=== PATIENT | female | born 1980 | race Caucasian/White ===

== ENCOUNTER 2024-02-13 17:00 | Emergency (ER) | payer OTHER, SELFPAY ==
--- NOTE | ~2024-02-13 | CT_ITS ---
EXAMINATION: CT ABDOMEN AND PELVIS WITHOUT CONTRAST CLINICAL INFORMATION: Bilateral flank pain. Dysuria. COMPARISON: CT abdomen pelvis dated August 31, 2021. TECHNIQUE: Multidetector volumetric imaging was performed from the superior aspect of the liver through the pubic symphysis. Sagittal and coronal reformatted images were obtained on the technologist's workstation. This CT examination was performed using dose optimization techniques as appropriate, variously including the following: *Automated exposure control *Adjustment of mA and/or kV according to patient size (this includes techniques or standardized protocols for targeted exams where dose is matched to indication/reason for exam; i.e. extremities or head) *Use of iterative reconstruction technique DLP: 722 mGy-cm FINDINGS: LUNG BASES: The visualized lung bases are unremarkable. LIVER, GALLBLADDER, AND BILIARY TREE: The liver is normal in size, shape, and attenuation. No focal hepatic lesion or biliary ductal dilatation is present. The gallbladder is surgically absent. PANCREAS: Unremarkable. SPLEEN: Unremarkable. ADRENAL GLANDS: Unremarkable. KIDNEYS AND URETERS: The right kidney is scarred and mildly atrophic. The appearance is similar to that seen on the August 31, 2021 CT abdomen pelvis. There are multiple calcifications of both the cortex and medulla. There is a punctate, nonobstructing calculus within the interpolar region. The left kidney is normal in size and attenuation. No left sided calculi or hydronephrosis. Bilaterally there is no hydroureter. There is no perinephric stranding. BLADDER: Unremarkable. GASTROINTESTINAL TRACT: The small and large bowel are normal in caliber. There is no pericolonic inflammatory stranding. The appendix is unremarkable. ABDOMINAL WALL: No significant hernia is appreciated. LYMPH NODES: No lymphadenopathy. VASCULAR: No aortic aneurysm. PELVIC VISCERA: Unremarkable. No pelvic free fluid. OSSEOUS STRUCTURES: There are bilateral L5 pars defects. There is 7 mm of anterolisthesis of L5 in relation to S1. There is moderate to severe degenerative disc disease at this level. CT/CT abdomen pelvis wo IV con IMPRESSION: No acute intra-abdominal/intrapelvic abnormality. The right kidney is scarred and mildly atrophic. The appearance is similar to that seen on the August 31, 2021 CT abdomen pelvis. There are multiple calcifications of both the cortex and medulla. There is a punctate, nonobstructing calculus within the interpolar region. The left kidney is normal in size and attenuation. No left sided calculi or hydronephrosis. There are bilateral L5 pars defects. There is 7 mm of anterolisthesis of L5 in relation to S1. There is moderate to severe degenerative disc disease at this level. Fleischner guidelines were followed. Electronically signed by: Abhilash Bustamante DO 02/13/2024 09:51 PM EDT
[2024-02-13 17:12] VITALS: BP 118/80; PULSE 97; RESP 18; TEMP 36.5; O2SAT 99; BMI 33.2
--- NOTE | 2024-02-13 17:16 | ED.GENADULT ---
HPI - General Adult General Chief complaint: Abdominal Pain Stated complaint: Abd pain Time Seen by Provider: 02/13/24 19:35 Source: patient Mode of arrival: ambulatory Limitations: no limitations History of Present Illness HPI narrative: Patient is a 43-year-old female who presents emergency department for evaluation. She states that 5 days ago she had an outpatient pelvic ultrasound due to vaginal bleeding that was without any acute abnormality aside from ?small right ovary? which her provider told her was due to her premenopausal state. She expresses concern that she did not take Macrobid prior to the transvaginal ultrasound, she has been instructed by her doctor to take Macrobid prior to any sexual intercourse and she is concerned that she now has a resulting kidney infection or obstructive kidney stone due to the pain she is experiencing. She has pain to the bilateral flanks though her right is worse than her left. Right kidney is functioning at ?29%?, and she has a known 5 mm stone that she is concerned is now in her urethra due to her degree of pain. She began taking OTC Cystex 3 days ago without improvement. Related Data Previous Rx's ?Medication ?Instructions ?Recorded nitrofurantoin 100 mg PO Q12H 5 days #10 caps 02/13/24 monohydrate/macrocrystals 100 mg capsule (Macrobid) Allergies Allergy/AdvReac Type Severity Reaction Status Date / Time adhesive tape Allergy Unknown Verified 02/13/24 17:20 carrot Allergy Hives Verified 02/13/24 17:20 [place] And Derivatives Allergy Hives Verified 02/13/24 17:20 egg Allergy Hives Verified 02/13/24 17:20 fluconazole [From Diflucan] Allergy Unknown Verified 02/13/24 17:20 montelukast [From Singulair] Allergy Hives Verified 02/13/24 17:20 sulfamethoxazole Allergy Unknown Verified 02/13/24 17:20 [From Bactrim] tetracycline Allergy Unknown Verified 02/13/24 17:20 trimethoprim [From Bactrim] Allergy Unknown Verified 02/13/24 17:20 Review of Systems Review of Systems: Yes all other systems are reviewed and are negative [facility] Past Medical History Attestation statement: The following information was validated with the patient. Source: old records reviewed Social History Social History Smoked in Last 30 Days: No Use of substances other than those prescribed or required for medical reasons: Yes Substance Use Type: Marijuana Advance Directives: No Advance Directives Information Provided: No Patient : No Physical Exam ED Vital Signs: Vital Signs - 24 hr 02/13/24 17:12 02/13/24 19:47 02/13/24 22:00 Temperature 97.7 F 98.1 F 98.4 F Pulse Rate 97 95 60 Respiratory Rate 18 16 16 Blood Pressure 118/80 122/84 100/60 Pulse Oximetry 99 98 97 Oxygen Delivery Method Room Air Room Air Room Air 02/13/24 22:42 Temperature 98.4 F Pulse Rate 60 Respiratory Rate 16 Blood Pressure 100/60 Pulse Oximetry 97 Oxygen Delivery Method Room Air BMI result Body Mass Index 33.2 Appearance: Alert.?Oriented to person, place and time. No acute distress.?Normal affect. Neck: Normal inspection.? Neck supple.?? CVS: Heart sounds normal. Normal heart rate and rhythm.? Pulses normal.?? Respiratory: No respiratory distress.? Lung sounds clear to auscultation bilaterally?? Abdomen: Soft and tenderness upon palpation over the suprapubic region. Bilateral CVAT, right worse than left. Normoactive bowel sounds. No pulsatile mass.?? Skin: Skin warm and dry.? Normal skin color.? Extremities: No lower extremity edema.? Neuro: Moves all extremities spontaneously. Sensation intact bilaterally. No focal neuro deficits. Ambulates with normal steady gait. Course Course Course Narrative: RME, this is a rapid medical exam performed by Darío Roe please refer to primary provider for complete H&P- 43 year old female presents for evaluation of abdominal pain. She reports a history of chronic UTIs. She was sent here by urgent care. Plan for labs and UA Reevaluation(s) Reevaluation #1: CT without evidence of obstructive calculi, pyelonephritis. She has notable degenerative changes in the lumbar spine notably at L5 pars defect, discussed these findings with patient, outpatient treatment, and appropriate follow-up with her primary care doctor. Her urinalysis reveals leukocyte esterase otherwise no significant compelling evidence of urinary tract infection, given she is symptomatically treat with a course of Macrobid, discussed with patient may additionally be cystitis, recommend outpatient follow-up with primary care doctor. Discussed worrisome signs and symptoms that would warrant re-evaluation emergency department. All questions answered. Medications Administered Discontinued Medications Generic Name Dose Route Start Last Admin Trade Name Freq PRN Reason Stop Dose Admin Ketorolac Tromethamine 15 mg 02/13/24 20:17 02/13/24 20:31 Ketorolac Tromethamine 15 Mg/Ml Vial IM 02/13/24 20:18 15 mg ONCE ONE Administration Ondansetron HCl 4 mg 02/13/24 20:21 02/13/24 20:31 Ondansetron Odt 4 Mg Tab.Rapdis TRANSLINGU 02/13/24 20:22 4 mg ONCE ONE Administration Phenazopyridine HCl 100 mg 02/13/24 20:17 02/13/24 20:31 Phenazopyridine Hcl 100 Mg Tablet PO 02/13/24 20:18 100 mg ONCE ONE Administration Medical Decision Making Medical Decision Making [facility] Narrative: Patient is a 43-year-old female presents emergency department for evaluation of bilateral flank pain the setting of recent urinary tract infection as per HPI, by her account she was seen at urgent care prior to arrival and was advised to come to the emergency department to have CT scan of the abdomen and pelvis obtained. She has great worse than left CVA tenderness upon palpation and suprapubic tenderness on exam. No rigidity or guarding of the abdomen. No rebound tenderness at McBurney's point. Requesting Pyridium which I feel is reasonable at this time given her dysuria, we will medicate with Toradol IM for pain, sublingual Zofran for nausea, pending CT abdomen pelvis and serum labs Differential Diagnosis Differential Diagnoses: The differential diagnosis associated with the presentation includes (Urinary tract infection, pyelonephritis, cystitis, nephrolithiasis, obstructive calculi, hydronephrosis. Lower clinical suspicion for colitis, enteritis, appendicitis, acute hepatobiliary etiology.) Admission/Observation Consideration of admission/observation: Escalation of care including admission/observation considered (See narrative above and below for further detail) Lab Data [facility] Lab Attestation statement: I reviewed the patient's lab results. CBC without leukocytosis anemia or thrombocytopenia. No electrolyte derangement. No TERESE. Urinalysis with trace leukocyte esterase. 02/13/24 17:40 02/13/24 17:40 Labs: Lab Results 02/13/24 Range/Units 17:40 WBC 7.8 (4.8-10.8) X10*3/uL RBC 4.11 L (4.20-5.50) X10*6/uL Hgb 12.9 (12.0-16.0) g/dl Hct 37.6 (37.0-47.0) % MCV 91.5 (80.0-98.0) fL MCH 31.4 (27.0-33.0) pg MCHC 34.3 (31.0-35.0) g/dl RDW 13.3 (11.0-16.0) % Plt Count 345 (160-400) X10*3/uL MPV 9.5 (9.4-12.3) fL Immature Gran % (Auto) 0.4 (0.0-0.4) % Neut % (Auto) 59.5 (45-73) % Lymph % (Auto) 31.9 (20-40) % [place] % (Auto) 6.0 (2-11) % Eos % (Auto) 1.8 (0-4) % Baso % (Auto) 0.4 (0-2) % Lymph # (Auto) 2.5 (1.2-4.9) X10*3/uL [place] # (Auto) 0.5 (0.1-1.2) X10*3/uL Eos # (Auto) 0.1 (0.0-0.4) X10*3/uL Baso # (Auto) 0.0 (0.0-0.2) X10*3/uL Abs Immat Gran (auto) 0.03 (0.00-0.03) X10*3/uL Absolute Neuts (auto) 4.7 (2.0-8.3) x10*3/uL Absolute Nucleated RBC 0.000 (0.0-0.012) X10*3/uL Nucleated RBC % (auto) 0.0 (0.0-0.2) /100WBC Sodium 142 (135-145) mmol/L Potassium 4.5 (3.3-5.1) mmol/L Chloride 110 H (96-108) mmol/L Carbon Dioxide 23 (22-29) mmol/L Anion Gap 14 (12-20) BUN 6 L (9-16) mg/dL Creatinine 0.81 (0.5-1.4) mg/dL Estim Creat Clear Calc 86.4 Estimated GFR > 60 Random Glucose 91 (60-115) mg/dL Calcium 8.5 (8.4-10.2) mg/dL Total Bilirubin 0.2 (0.0-1.0) mg/dL AST 17 (5-31) U/L ALT 15 (0-31) U/L Alkaline Phosphatase 49 (39-117) U/L Total Protein 6.4 L (6.5-8.0) g/dL Albumin 3.7 (3.5-5.0) g/dL Lipase 29 (8-78) U/L Beta HCG, Quant < 2 mIU/mL Urine Color Yellow Urine Appearance Clear Urine pH 6.0 (5.0-9.0) Ur Specific [place] 1.020 (1.005-1.025) Urine Protein Negative (Neg-Trace) mg/dL Urine Glucose (UA) Negative (Negative) mg/dL Urine Ketones Negative (Negative) mg/dL Urine Blood Negative (Negative) Urine Nitrite Negative (Negative) Ur Leukocyte Esterase Trace H (Negative) Urine RBC 0-2 (0-2) /HPF Urine WBC 0-5 (0-5) /HPF Ur Squamous Epith Cells 0-2 (0-2) /HPF Urine Bacteria None Seen (None Seen) Hyaline Casts 0-2 (0-2) /LPF Radiology Impression Discussion of test interpretation with radiology: I have reviewed the radiologist's reading. Radiologist Impression: CT/CT abdomen pelvis wo IV con IMPRESSION: No acute intra-abdominal/intrapelvic abnormality. The right kidney is scarred and mildly atrophic. The appearance is similar to that seen on the August 31, 2021 CT abdomen pelvis. There are multiple calcifications of both the cortex and medulla. There is a punctate, nonobstructing calculus within the interpolar region. The left kidney is normal in size and attenuation. No left sided calculi or hydronephrosis. There are bilateral L5 pars defects. There is 7 mm of anterolisthesis of L5 in relation to S1. There is moderate to severe degenerative disc disease at this level. External Record Review External record reviewed: Outpatient record Prescription Management I considered prescription management with: Pain Medication and Antibiotic Discharge Plan Discharge Clinical Impression: Abdominal pain Patient Disposition: Home, Self-Care Additional Instructions: CT scan does not show evidence of an obstructive kidney stone or kidney infection. Your urine test today does not show compelling evidence of significant urinary tract infection, however given your history, and symptoms will treat you with a course of antibiotics. If you do not have improvement in symptoms after this course, it may be that she wore urinary symptoms are due to inflammation of the urethral/bladder water than a true infection, which should be followed up further outpatient with your primary care doctor. CT scan does show that you have significant arthritic changes in your lower back, inflammation and pain from muscle tension/nerve involvement can also result in pain similar to what you are experiencing. You can take ibuprofen 200 mg, 3 tablets (600mg) every 6-8 hours as needed for pain, in addition to Tylenol 500 mg, 2 tablets (1,000mg) every 4-6 hours as needed for pain, but not to exceed 3 doses daily (3,000mg).? Contact your primary care doctor to arrange for outpatient follow-up, they may consider a course of physical therapy. If you do not have improvement, they may consider referral to a payroll and benefits specialist. CT/CT abdomen pelvis wo IV con IMPRESSION: No acute intra-abdominal/intrapelvic abnormality. The right kidney is scarred and mildly atrophic. The appearance is similar to that seen on the August 31, 2021 CT abdomen pelvis. There are multiple calcifications of both the cortex and medulla. There is a punctate, nonobstructing calculus within the interpolar region. The left kidney is normal in size and attenuation. No left sided calculi or hydronephrosis. There are bilateral L5 pars defects. There is 7 mm of anterolisthesis of L5 in relation to S1. There is moderate to severe degenerative disc disease at this level. Prescriptions: New nitrofurantoin monohyd/m-cryst [Macrobid] 100 mg capsule 100 mg PO Q12H 5 Days Qty: 10 0RF Rx Instructions: must administer with a meal/food Referrals: Carrie Howard MD [Primary Care Provider] - Interventions: ED Discharge Assessment Last Done: 02/13/24 22:42 Discharge Date/Time: 02/13/24 22:43 Print Language: Taiwanese
[2024-02-13 17:47] LABS: MANUAL DIFF FLAG NO
[2024-02-13 17:50] LABS: Appearance Urine Clear; Color Urine Yellow; Glucose Urine UA Negative (Negative); Leukocyte Esterase Urine Trace (Negative); Nitrite Urine Negative (Negative); UMIC TRIGGER UACC YES; Urine Blood Negative (Negative); Urine Ketones Negative (Negative); Urine Protein Negative (Neg-Trace)
[2024-02-13 17:53] LABS: Bacteria Urine None Seen (None Seen); Basophils Percent Auto 0.4 % (0-2); Eosinophils Absolute Auto 0.1 X10*3/uL (0.0-0.4); Eosinophils Percent Auto 1.8 % (0-4); Hematocrit 37.6 % (37.0-47.0); Hemoglobin 12.9 g/dl (12.0-16.0); Hyaline Casts Urine 0-2 /LPF (0-2); Imm Gran Abs Auto 0.03 X10*3/uL (0.00-0.03); Imm Gran Pct Auto 0.4 % (0.0-0.4); Lymphocytes Absolute Auto 2.5 X10*3/uL (1.2-4.9); Lymphocytes Percent Auto 31.9 % (20-40); Mean Corpuscular HGB Conc 34.3 g/dl (31.0-35.0); Mean Corpuscular Hemoglobin 31.4 pg (27.0-33.0); Mean Corpuscular Volume 91.5 fL (80.0-98.0); Mean Platelet Volume 9.5 fL (9.4-12.3); Monocytes Absolute Auto 0.5 X10*3/uL (0.1-1.2); Neutrophils Absolute Auto 4.7 x10*3/uL (2.0-8.3); Neutrophils Percent Auto 59.5 % (45-73); Platelet Count 345 X10*3/uL (160-400); RBC Urine 0-2 /HPF (0-2); Red Blood Count 4.11 X10*6/uL (4.20-5.50); Red Cell Distribution Width 13.3 % (11.0-16.0); Squamous Epithelial Cell Urine 0-2 /HPF (0-2); WBC Urine 0-5 /HPF (0-5); White Blood Count 7.8 X10*3/uL (4.8-10.8)
[2024-02-13 18:12] LABS: Alanine Aminotransferase 15 U/L (0-31); Alkaline Phosphatase 49 U/L (39-117); Anion Gap 14 (12-20); Aspartate Amino Transferase 17 U/L (5-31); Bilirubin Total 0.2 mg/dL (0.0-1.0); Blood Urea Nitrogen 6 mg/dL (9-16); Calcium 8.5 mg/dL (8.4-10.2); Carbon Dioxide 23 mmol/L (22-29); Chloride 110 mmol/L (96-108); Creatinine Clr Calc Pharmacy 86.4; Estimated Glomerular Filt Rate > 60; Glucose Random 91 mg/dL (60-115); Lipase 29 U/L (8-78); Potassium 4.5 mmol/L (3.3-5.1); Sodium 142 mmol/L (135-145); Total Protein 6.4 g/dL (6.5-8.0)
[2024-02-13 18:15] LABS: Albumin Level 3.7 g/dL (3.5-5.0)
[2024-02-13 19:47] VITALS: BP 122/84; PULSE 95; RESP 16; TEMP 36.7; O2SAT 98
[2024-02-13] MEDS: Phenazopyridine HCL 100 MG TABLET PO (20:31)
[2024-02-13] MEDS: Ondansetron ODT 4 MG TAB.RAPDIS TRANSLINGU (20:31)
[2024-02-13] MEDS: Ketorolac Tromethamine 15 MG/ML VIAL IM (20:31)
[2024-02-13 21:01] LABS: HCG Quantitative < 2 mIU/mL
[2024-02-13 22:00] VITALS: BP 100/60; PULSE 60; RESP 16; TEMP 36.9; O2SAT 97
[2024-02-13 22:42] VITALS: BP 100/60; PULSE 60; RESP 16; TEMP 36.9; O2SAT 97
== END 2024-02-13 22:43 | disposition home or self-care (01) ==
PROVIDERS: Nurse Practitioner Family; Physician Assistant; Emergency Provider Internal Medicine; PCP Internal Medicine
DX: R10.9 Unspecified abdominal pain (principal); R30.0 Dysuria; Z87.440 Personal history of urinary (tract) infections
CPT/HCPCS: 36415; 74176; 80053; 81001; 83690; 84702; 85025; 96372; 99284; J1885

== ENCOUNTER 2024-05-26 10:17 | Emergency (ER) | payer OTHER, SELFPAY ==
[2024-05-26 10:24] VITALS: BP 124/73; PULSE 84; RESP 16; TEMP 36.4; O2SAT 98; BMI 34.1
[2024-05-26 11:30] LABS: Influenza A PCR NEGATIVE (Negative); Influenza B PCR NEGATIVE (Negative); Resp Syncy Virus RNA Qual PCR NEGATIVE (Negative); SARS COV2 PCR INHOUSE NEGATIVE (Negative)
--- NOTE | 2024-05-26 13:35 | ED_ITS ---
HPI - Extremity Injury (Lower) General Chief Complaint: Extremity Injury, Lower Stated Complaint: Toe pain Time Seen by Provider: 05/26/24 13:30 Source: patient Mode of arrival: ambulatory Limitations: no limitations History of Present Illness ED Provider: KATHARINE HUGHES PA-C HPI Narrative: 43-year-old female presents to the ED today for evaluation of left great toe infection x24 hours after getting her toe nails done at a nail salon. Reports swelling and pain to the outer aspect of her left great toe nail. Admits to occasional discharge from the area. She has been clipping the nail at home without relief. Denies injury/ trauma. Denies fever, chills. She also reports sinus pain, nasal congestion and dry cough x2 days. She was not trialed any [id number] medications for her symptoms. Related Data Previous Rx's ?Medication ?Instructions ?Recorded nitrofurantoin 100 mg PO Q12H 5 days #10 caps 02/13/24 monohydrate/macrocrystals 100 mg capsule (Macrobid) cephalexin 500 mg capsule 500 mg PO BID 7 days #14 caps 05/26/24 Allergies Allergy/AdvReac Type Severity Reaction Status Date / Time adhesive tape Allergy Unknown Verified 05/26/24 10:26 carrot Allergy Hives Verified 05/26/24 10:26 [place] And Derivatives Allergy Hives Verified 05/26/24 10:26 egg Allergy Hives Verified 05/26/24 10:26 fluconazole [From Diflucan] Allergy Unknown Verified 05/26/24 10:26 montelukast [From Singulair] Allergy Hives Verified 05/26/24 10:26 sulfamethoxazole Allergy Unknown Verified 05/26/24 10:26 [From Bactrim] tetracycline Allergy Unknown Verified 05/26/24 10:26 trimethoprim [From Bactrim] Allergy Unknown Verified 05/26/24 10:26 Review of Systems Review of Systems: Yes all other systems are reviewed and are negative PMFSH Past Medical History Attestation statement: The following information was validated with the patient. Source: old records reviewed and nursing notes reviewed Social History Social History Substance Use Type: Marijuana Advance Directives: No Advance Directives Information Provided: No Do you have a plan to hurt others: No Plan Physical Exam Vital Signs: Vital Signs: Last Vital Signs Temp 98.6 F 05/26/24 14:21 Pulse 83 05/26/24 14:21 Resp 16 05/26/24 14:21 BP 123/76 05/26/24 14:21 Pulse Ox 97 05/26/24 14:21 O2 Del Method Room Air 05/26/24 14:21 BMI result Body Mass Index 34.1 vitals signs stable General: Well appearing, in no acute distress. Skin: Warm, dry, intact. No rashes or lesions. Head: Normocephalic, atraumatic. EENT: Hearing is intact b/l. Conjunctiva clear. Sclera is anicteric. PERRLA. EOM intact. Moist mucous membranes.? Neck: Supple without LAD Cardiac: Chest wall symmetric. RRR Lungs: Normal respiratory effort without accessory muscle use. CTA bilaterally Abdomen: Soft, non-tender, non-distended. No rebound tenderness or guarding. Positive BS x4. Back: No midline spinous or paraspinal tenderness. No step off deformity. Ext: Upper and lower extremities atraumatic, without tenderness, deformity, swelling or erythema. Full ROM throughout. Strength 5/5 throughout. Capillary refill <2 seconds in all extremities. Pulses 2+ equal and bilateral. Neuro: AOx3. Normal speech. CN 2-12 grossly intact. Strength 5/5 intact throughout. No saddle anesthesia. Sensation intact to light touch. NV intact distally. Reflexes 2+ bilaterally. Ambulating with steady gait. Psych: Appropriate mood and affect. Responds appropriately to questions. Course Course Course Narrative: Negative COVID, flu, RSV. Exam is significant for paronychia of left great toenail that she has self lanced at home. There is no fluctuance or central pointing to suggest I&D. Will discharge patient home on Keflex. Advised to continue soaking in Epsom salt. Patient has remained stable throughout ED visit today. Discussed worrisome signs and symptoms and when to return to the ED. All questions answered at this time. Patient is agreeable with disposition and stable for discharge. Medical Decision Making Medical Decision Making MDM Narrative: 43-year-old female presents to the ED today for evaluation of left great toe infection x24 hours after getting her toe nails done at a nail salon. Differential Diagnosis Differential Diagnoses: The differential diagnosis associated with the presentation includes as above. Admission/Observation not indicated. Lab Data MDM Lab Attestation statement: I reviewed the patient's lab results. as above. Labs: Lab Results 05/26/24 Range/Units 10:33 Influenza Type A (PCR) NEGATIVE (Negative) Influenza Type B (PCR) NEGATIVE (Negative) RSV RNA Qual (PCR) NEGATIVE (Negative) SARS-CoV-2 RNA (RT-PCR) NEGATIVE (Negative) Social Determinants Patient?s care significantly limited by Social Determinants of Health including: Other Social Determinant of Health Critical Care Time Critical Care Time Critical Care Time: No Discharge Plan Discharge Clinical Impression: Paronychia of great toe, Viral upper respiratory tract infection Patient Disposition: Home, Self-Care Instructions: Paronychia (ED), Cellulitis (ED), Upper Respiratory Infection (ED), Viral Syndrome (ED) Additional Instructions: Soak your left great toe in warm water and Epsom salt 2-3 times daily. Keflex is an antibiotic that has been sent to your pharmacy. Take this as prescribed over the next 5 days. Follow up with PCP and/or podiatry. You tested negative for covid, flu, and rsv. Return with any new or worsening symptoms. In the case of an emergency call 911. Prescriptions: New cephalexin 500 mg capsule 500 mg PO BID 7 Days Qty: 14 0RF No Action nitrofurantoin monohyd/m-cryst [Macrobid] 100 mg capsule 100 mg PO Q12H 5 Days Qty: 10 0RF Rx Instructions: must administer with a meal/food Referrals: Carrie Howard MD [Primary Care Provider] - Chris Wilkins MD [Physician] - Interventions: ED Discharge Assessment Last Done: 05/26/24 14:21 Discharge Date/Time: 05/26/24 14:22 Print Language: [place]aguayan
[2024-05-26 14:21] VITALS: BP 123/76; PULSE 83; RESP 16; TEMP 37; O2SAT 97
== END 2024-05-26 14:22 | disposition home or self-care (01) ==
PROVIDERS: Emergency Provider Emergency Medicine; PCP Internal Medicine
DX: L03.032 Cellulitis of left toe (principal); J06.9 Acute upper respiratory infection, unspecified
CPT/HCPCS: 0241U; 99282